=== PATIENT | female | born 1965 | race African-American/Black ===

== ENCOUNTER 2023-07-04 09:04 | Emergency (ER) | payer OTHER, SELFPAY ==
[2023-07-04 09:06] VITALS: BP 125/93
[2023-07-04] MEDS: ADACEL 0.5 ML IM (09:59)
--- NOTE | 2023-07-04 10:00 | ED.GENMED ---
History of Present Illness
General
Chief Complaint: Skin Surface Trauma
Source: patient
Exam Limitations: none
Time Seen by Provider: 07/04/23 09:13
Nursing documentation reviewed up to this point in time: agreed with
Travel History
Have you had any contact with someone who has COVID-19?: No
Do you have any symptoms of coronavirus? Fever > 100 degrees, chills, cough, shortness of breath, sore throat, loss of taste or smell, muscle aches, or headache?: No
History of Present Illness
History of Present Illness:
57 Y/O F with h/o HTN, HLD, etoh and drug abuse in recovery house currently
accidentally cut her finger left index on a piece of metal that was sticking ut of the side of the microwave
pt has a linear lacration on her left radial index finger
she has full rom and normal sensation, just has a little tingling
bleeding controlled
tetanus thought initialy to be UTD then pt says she did not know.
Past History
Past History
ED Past Medical History: HTN and Hypercholesterolemia
Social History
Tobacco: Non-smoker
Alcohol: Former
Drug: Former user
Living: other ([facility])
Employment: Not employed
Review of Systems
Review of Systems
Allergies reviewed?: Yes
All Other Systems: Not applicable
Phy Exam
Physical Exam
Physical Exam:
GENERAL: Alert , in no apparent distress, comfortable at rest
HEAD: NCAT
CV: 2+ DP PULSES B/L
NEUROLOGICAL: Alert and oriented, no focal neuro deficits, , 5/5 strength, sensation intact, ambulation slight limp right leg
SKIN: Warm and dry, 4 cm linear laceration radial aspect left index finger laterally
bleeding controlled
MUSCULOSKELETAL:finger laceration
full rom
no obvious tendon or nerve exposure
sensation grossly intact
PSYCH: Normal and appropriate interaction.
Course
Orders/Labs/Results
Orders:
Orders
07/04/23 09:53
Tetanus/Diphth/Acelpertussis [Adacel] 0.5 ml IM .ONCE ONE
Vital Signs
Initial and Last Documented VS:
Initial Vital Signs
Temp Pulse Resp BP Pulse Ox
98.1 F 86 16 125/93 98
07/04/23 09:06 07/04/23 09:06 07/04/23 09:06 07/04/23 09:06 07/04/23 09:06
Last Documented Vital Signs
Temp Pulse Resp BP Pulse Ox
98.1 F 86 16 125/93 98
07/04/23 09:06 07/04/23 09:06 07/04/23 09:06 07/04/23 09:06 07/04/23 09:06
Procedures
Laceration Closure
Left Second Finger(s):
Status of Wound: clean
Size of Wound in cm: 4.5
Description of Wound Edges: sharp and flap-well vascularized
Preparation: cleaned with saline
Anesthesia: 1% Lidocaine
Revision/Debridement: routine- no revision
Wound exploration: explored to base- no FB
Type of Closure: single layer closure
Skin Closure Material: 5-0 nylon
Number of sutures: 10
MDM/Problems Addressed
Differential Diagnosis Includes:
laceration, finger injuryu
MDM/Problems Addressed:
57 y/o F with finger laceration
no sensory or functional deficit
linear laceratino well approximated with sutures
bulky dressing
*Critical Care Note
Total Time (30-74mins, 75-104mins- exclusive of procedures): Not Applicable
ED Attending Note
-
Portions of this chart may have been created with voice recognition software.� Occasional wrong word or��sound alike� substitutions may have occurred due to the inherent limitations of voice recognition software.
Discharge Plan
Departure
Patient Disposition: Home (Routine Discharge)
Date of Disposition: 07/04/23
Time of Disposition: 09:53
Patient with high blood pressure during this ER visit?: No
Condition: Fair
Covid-19: Not Applicable
Discharge Problem:
Laceration of finger
Instructions: Laceration Repair With Stitches (DC)
Activity Restrictions/Additional Instructions:
KEEP THE WOUND CLEAN AND DRY FOR 24 HOURS
AFTER THAT YOU CAN GET IT WET IN THE BATH/SHOWER ONCE A DAY AND MAKE SURE IT IS CLEAN AND THERE IS NO DRIED BLOOD ON THE STITCHES
APPLY NEOSPORIN AND A DRESSING - MAKE THE DRESSING BULKY FOR A FEW DAYS TO HELP PREVENT BENDING THE FINGER TO ALLOW THE STITCHES TO HEAL.
THE STITCHES NEED TO BE REMOVED IN ABOUT 7-10 DAYS (probably closer to 10 days), SEE YOUR DOCTOR FOR THIS.
THE LAST DAY BEFORE STITCHES OUT, NO OINTMENT, LEAVE OPEN TO AIR
WATCH FOR SIGNS OF INFECTION AND RETURN NEEDED FOR PAIN, SWELLING, REDNESS, DRAINAGE, BLEEDING.
MOTRIN NEEDED FOR PAIN.
Interventions
Interventions:
*Risk Screen - Suicide Last Done: 07/04/23 09:06
*General Assessment Last Done: 07/04/23 09:06
*Neglect/Abuse Screening Last Done: 07/04/23 09:06
*Nursing Disposition Last Done: 07/04/23 10:12
ED-Skin Assessment Last Done: 07/04/23 09:30
Discharge Date and Time
Discharge Date/Time: 07/04/23 10:13
== END 2023-07-04 10:13 | disposition home or self-care (01) ==
LOC: EMR 09:04
PROVIDERS: EMERGENCY PHYSICIAN Student in an Organized Health Care Education/Training Program
DX: S61.211A Laceration without foreign body of left index finger without damage to nail, initial encounter (principal); R20.2 Paresthesia of skin; W45.8XXA Other foreign body or object entering through skin, initial encounter; Y92.89 Other specified places as the place of occurrence of the external cause; I10 Essential (primary) hypertension; E78.00 Pure hypercholesterolemia, unspecified; R73.03 Prediabetes; J45.909 Unspecified asthma, uncomplicated; F19.11 Other psychoactive substance abuse, in remission; Z88.8 Allergy status to other drugs, medicaments and biological substances
CPT/HCPCS: 99282; 12002; 90471; 90715